=== PATIENT | male | born 1990 | race Caucasian/White ===

== ENCOUNTER 2019-10-27 17:39 | Emergency (ER) | payer OTHER ==
[~2019-10-27] VITALS: Ht 177.8 cm; Wt 98.4 kg
[~2019-10-27 17:39] MED LIST: LOMOTIL 0.025 M1 TA1 PO; NKHM; ULTRAM50 MG PO; ZOFRAN ODT4 MG SL; ZOFRAN ODT8 MG PO
[2019-10-27 19:48] LABS: URINE AMPHETAMINES < 1000 (1000ng/ml); URINE BARBITURATES < 200 (200ng/ml); URINE BENZODIAZEPINES < 200 (200ng/ml); URINE CANNABINOIDS (THC) < 50 (50ng/ml); URINE COCAINE < 300 (300ng/ml); URINE METHADONE < 300 (300ng/ml); URINE OPIATES < 300 (300ng/ml)
[2019-10-27 19:51] LABS: URINE PHENCYCLIDINE < 25 (25ng/ml)
== END 2019-10-27 20:37 | disposition home or self-care (01) ==
LOC: ED 17:39
PROVIDERS: Emergency Medicine
DX: M54.2 Cervicalgia (principal); M25.521 Pain in right elbow; M25.511 Pain in right shoulder; Z79.899 Other long term (current) drug therapy; V89.2XXA Person injured in unspecified motor-vehicle accident, traffic, initial encounter; Y93.89 Activity, other specified; Y92.89 Other specified places as the place of occurrence of the external cause; Y99.8 Other external cause status

== ENCOUNTER → 2022-01-30 | Outpatient (CLI) | payer BC | END | disposition home or self-care (01) | LOC: CT 08:55 | PROVIDERS: ATTEND Internal Medicine | DX: R05.9 Cough, unspecified (principal); R06.02 Shortness of breath ==

== ENCOUNTER 2022-05-24 16:40 | Emergency (ER) | payer BC ==
[~2022-05-24] VITALS: Ht 177.8 cm; Wt 93.0 kg
[2022-05-24] MEDS ORDERED: MEDROL DOSEPAK4 MG PO (20:06)
[2022-05-24] MEDS ORDERED: PROVENTIL HFA6.7 GM INH (20:06)
== END 2022-05-24 20:21 | disposition home or self-care (01) ==
LOC: ED 16:40
DX: J45.901 Unspecified asthma with (acute) exacerbation (principal); Z20.822 Contact with and (suspected) exposure to COVID-19; Z88.0 Allergy status to penicillin